=== PATIENT | male | born 1960 | race Caucasian/White ===

== ENCOUNTER 2017-06-13 19:08 | Emergency (ER) | payer BC ==
[~2017-06-13] VITALS: Ht 195.6 cm; Wt 126.8 kg
[~2017-06-13 19:08] MED LIST: DICLOFENAC SOD100 MG PO; MEDROL DOSEPAK4 MG PO; PROAIR HFA8.5 GM IH; ZYRTEC10 M3 PO
[2017-06-13] MEDS ORDERED: NAPROSYN500 MG PO (20:20)
[2017-06-13] MEDS ORDERED: FLEXERIL10 MG PO (20:20)
[2017-06-13 22:18] VITALS: BP 148/96
== END 2017-06-13 22:20 | disposition home or self-care (01) ==
LOC: EME 19:08
DX: S46.211A Strain of muscle, fascia and tendon of other parts of biceps, right arm, initial encounter (principal); X50.0XXA Overexertion from strenuous movement or load, initial encounter
CPT/HCPCS: 99281; 99283